=== PATIENT | female | born 1945 | race Hispanic/Latino ===

== ENCOUNTER 2021-10-12 16:09 | Inpatient (IN) | payer MEDICARE ==
[~2021-10-12] VITALS: Ht 162.6 cm; Wt 60.2 kg
[2021-10-12] VITALS (23 sets, daily range): BP systolic 90–179; BP diastolic 39–78
[2021-10-12 16:44] LABS: HEMATOCRIT 31.3 % (36-48); MEAN CORPUSCULAR HEMOGLOBIN 26.6 pg (27.0-33.0); MEAN CORPUSCULAR HGB CONC 31.3 g/dL (32.0-36.0); MEAN CORPUSCULAR VOLUME 84.8 fL (79-99); RED BLOOD CELL COUNT(AUTO) 3.69 MIL/uL (4.00-5.50); RED CELL DISTRIBUTION WIDTH 14.5 % (11.0-15.5); WHITE BLOOD COUNT (AUTO) 9.4 K/uL (4.8-10.8)
[2021-10-12] MEDS ORDERED: PROPOFOL 10 MG/ML 20ML VIAL IV ONE (16:50)
[2021-10-12] MEDS ORDERED: LIDOCAINE PF 100MG/5ML (2%) SYRINGE 5ML ONE (16:50)
[2021-10-12] MEDS ORDERED: ROCURONIUM 10MG/1ML SYR 10 MG/ML ML ONE (16:51)
[2021-10-12] MEDS ORDERED: FENTANYL CITRATE PF 50 MCG/1 ML 2ML VIAL ONE ×3 (16:51→18:37)
[2021-10-12 16:54] LABS: CREATININE 1.3 mg/dL (0.5-1.5); POTASSIUM 4.3 mmol/L (3.5-5.1)
[2021-10-12 16:55] LABS: INR 1.08 (0.85-1.15); PROTHROMBIN TIME 11.7 SEC (9.6-11.6)
[2021-10-12 16:59] LABS: ALBUMIN 3.2 g/dL (3.5-5.0); BILIRUBIN,TOTAL 0.5 mg/dL (0.2-1.0); TOTAL PROTEIN, SERUM 6.9 g/dL (6.0-8.3)
[2021-10-12 17:08] LABS: PARTIAL THROMBOPLASTIN TIME 92.9 SEC (26.3-35.5)
[2021-10-12] MEDS ORDERED: CEFAZOLIN SODIUM 1 GM VIAL ONE ×2 (17:24→17:43)
[2021-10-12] MEDS ORDERED: TRAMADOL HCL 50 MG TABLET PO PRN (18:00)
[2021-10-12] MEDS ORDERED: ACETAMINOPHEN 325 MG TAB PO PRN ×3 (18:00→23:00)
[2021-10-12] MEDS ORDERED: NEOSTIGMINE 5MG/5ML SYR IV ONE (18:38)
[2021-10-12] MEDS ORDERED: GLYCOPYRROLATE 1 MG/5 ML SYRINGE ONE (18:38)
[2021-10-12] MEDS ORDERED: ONDANSETRON 4MG INJ ONE (19:09)
[2021-10-12] MEDS ORDERED: HYDRALAZINE 20MG/ML VIAL ONE (19:17)
[2021-10-12] MEDS ORDERED: BENZONATATE 100 MG CAPSULE PO STA (20:21)
[2021-10-12] MEDS ORDERED: LACTULOSE 20 GM/30 ML UDCUP PO PRN (23:00)
[2021-10-12] MEDS ORDERED: KCL 20 MEQ ERTAB PO PRN (23:00)
[2021-10-12] MEDS ORDERED: POTASSIUM CHLORIDE 20MEQ/100ML 100 ML IV PRN (23:00)
[2021-10-12] MEDS ORDERED: LIDOCAINE HCL-MPF 1% 2ML VIAL IV PRN (23:00)
[2021-10-12] MEDS ORDERED: POTASSIUM CHLORIDE 10% ELIXIR 20 MEQ/15 ML UDCUP PO PRN (23:00)
[2021-10-13] VITALS (28 sets, daily range): BP systolic 89–178; BP diastolic 34–91
[2021-10-13 02:15] LABS: HEMATOCRIT 24.6 % (36-48); MEAN CORPUSCULAR HEMOGLOBIN 27.3 pg (27.0-33.0); MEAN CORPUSCULAR HGB CONC 30.5 g/dL (32.0-36.0); MEAN CORPUSCULAR VOLUME 89.5 fL (79-99); PLATELET COUNT (AUTO) 273 K/uL (130-400); RED BLOOD CELL COUNT(AUTO) 2.75 MIL/uL (4.00-5.50); RED CELL DISTRIBUTION WIDTH 14.8 % (11.0-15.5); WHITE BLOOD COUNT (AUTO) 15.5 K/uL (4.8-10.8)
[2021-10-13 02:24] LABS: INR 1.09 (0.85-1.15); PROTHROMBIN TIME 11.8 SEC (9.6-11.6)
[2021-10-13] MEDS ORDERED: BENZONATATE 100 MG CAPSULE PO PRN ×2 (03:00→05:30)
[2021-10-13] MEDS: CEFAZOLIN SODIUM 1 GM VIAL IVP SCH ×3 (03:13→16:20)
[2021-10-13] MEDS: ONDANSETRON 4MG INJ IV PRN ×2 (03:23→08:49)
[2021-10-13] MEDS: INSULIN HUMULIN R 100 UNIT/ML 3ML SQ SCH ×4 (07:30→20:20)
[2021-10-13 07:44] LABS: ALBUMIN 2.7 g/dL (3.5-5.0); BILIRUBIN,TOTAL 0.5 mg/dL (0.2-1.0); CREATININE 1.3 mg/dL (0.5-1.5); MAGNESIUM 2.2 mg/dL (1.80-2.40); PHOSPHORUS 5.2 mg/dL (2.5-4.9); POTASSIUM 4.7 mmol/L (3.5-5.1); TOTAL PROTEIN, SERUM 5.6 g/dL (6.0-8.3)
[2021-10-13 07:55] LABS: BASOPHILS % (AUTO) 0.2 % (0.0-5.0); HEMATOCRIT 26.1 % (36-48); LYMPHOCYTES % (AUTO) 5.4 % (21.0-51.0); MEAN CORPUSCULAR HEMOGLOBIN 27.9 pg (27.0-33.0); MEAN CORPUSCULAR HGB CONC 32.2 g/dL (32.0-36.0); MEAN CORPUSCULAR VOLUME 86.7 fL (79-99); MONOCYTES % (AUTO) 4.9 % (3.0-13.0); NEUTROPHILS % (AUTO) 88.9 % (40.0-77.0); PLATELET COUNT (AUTO) 212 K/uL (130-400); RED BLOOD CELL COUNT(AUTO) 3.01 MIL/uL (4.00-5.50); RED CELL DISTRIBUTION WIDTH 14.8 % (11.0-15.5); WHITE BLOOD COUNT (AUTO) 12.3 K/uL (4.8-10.8)
[2021-10-13] MEDS: TRAMADOL HCL 50 MG TABLET PO PRN (08:33)
[2021-10-13] MEDS ORDERED: MAG/ALUM/SIMETH 30 ML UDCUP ONE (08:38)
[2021-10-13] MEDS ORDERED: FAMOTIDINE 20MG TAB PO SCH (09:00)
[2021-10-13] MEDS ORDERED: MAG/ALUM/SIMETH 30 ML UDCUP PO PRN (09:00)
[2021-10-13] MEDS ORDERED: GLIP10TA9 PO (10:16)
[2021-10-13] MEDS ORDERED: CLOP75TA32 PO (10:16)
[2021-10-13] MEDS ORDERED: FURO20TA4 PO (10:16)
[2021-10-13] MEDS ORDERED: PREG50CA63 PO (10:16)
[2021-10-13] MEDS ORDERED: FLUO20CA36 PO (10:16)
[2021-10-13] MEDS ORDERED: EMPA1TAB19 PO (10:16)
[2021-10-13] MEDS ORDERED: METO25TA6 PO (10:16)
[2021-10-13] MEDS ORDERED: ATOR20TA65 PO (10:16)
[2021-10-13] MEDS ORDERED: PANT20TA18 PO (10:16)
[2021-10-13] MEDS ORDERED: OLME-11 PO (10:16)
[2021-10-13] MEDS: PREGABALIN 25 MG CAP PO SCH ×2 (20:16→20:27)
[2021-10-13] MEDS: ATORVASTATIN 20 MG TABLET PO SCH (20:17)
[2021-10-13] MEDS: METOPROLOL TARTRATE 25 MG TAB PO SCH (20:17)
[2021-10-13] MEDS: HEPARIN 5,000 UNIT VIAL SQ SCH (20:19)
[2021-10-14] VITALS (18 sets, daily range): BP systolic 98–143; BP diastolic 37–79
[2021-10-14 03:44] LABS: BASOPHILS % (AUTO) 0.3 % (0.0-5.0); EOSINOPHILS % (AUTO) 0.5 % (0.0-8.0); HEMATOCRIT 22.1 % (36-48); LYMPHOCYTES % (AUTO) 16.1 % (21.0-51.0); MEAN CORPUSCULAR HEMOGLOBIN 26.6 pg (27.0-33.0); MEAN CORPUSCULAR HGB CONC 31.2 g/dL (32.0-36.0); MEAN CORPUSCULAR VOLUME 85.3 fL (79-99); NEUTROPHILS % (AUTO) 70.5 % (40.0-77.0); PLATELET COUNT (AUTO) 218 K/uL (130-400); RED BLOOD CELL COUNT(AUTO) 2.59 MIL/uL (4.00-5.50); RED CELL DISTRIBUTION WIDTH 15.2 % (11.0-15.5); WHITE BLOOD COUNT (AUTO) 11.6 K/uL (4.8-10.8)
[2021-10-14 03:59] LABS: ALBUMIN 2.6 g/dL (3.5-5.0); BILIRUBIN,TOTAL 0.2 mg/dL (0.2-1.0); CREATININE 1.3 mg/dL (0.5-1.5); MAGNESIUM 2.2 mg/dL (1.80-2.40); POTASSIUM 3.7 mmol/L (3.5-5.1); TOTAL PROTEIN, SERUM 5.5 g/dL (6.0-8.3)
[2021-10-14] MEDS: INSULIN HUMULIN R 100 UNIT/ML 3ML SQ SCH ×4 (06:32→20:17)
[2021-10-14] MEDS: HYDROCHLOROTHIAZIDE PO SCH (09:00)
[2021-10-14] MEDS: METOPROLOL TARTRATE 25 MG TAB PO SCH ×2 (09:00→20:20)
[2021-10-14] MEDS: CLOPIDOGREL 75MG TAB PO SCH (09:00)
[2021-10-14] MEDS: HEPARIN 5,000 UNIT VIAL SQ SCH ×2 (09:00→20:16)
[2021-10-14] MEDS: OLMESARTAN PO SCH (09:00)
[2021-10-14] MEDS: FLUOXETINE HCL 20 MG CAPSULE PO SCH (09:05)
[2021-10-14] MEDS: FUROSEMIDE 20 MG TABLET PO SCH (09:05)
[2021-10-14] MEDS: PANTOPRAZOLE 40 MG TAB DR PO SCH (09:05)
[2021-10-14] MEDS: PREGABALIN 25 MG CAP PO SCH ×3 (09:05→20:11)
[2021-10-14 11:11] LABS: HEMATOCRIT 26.4 % (36-48); MEAN CORPUSCULAR HEMOGLOBIN 27.8 pg (27.0-33.0); MEAN CORPUSCULAR HGB CONC 32.6 g/dL (32.0-36.0); MEAN CORPUSCULAR VOLUME 85.4 fL (79-99); RED BLOOD CELL COUNT(AUTO) 3.09 MIL/uL (4.00-5.50); RED CELL DISTRIBUTION WIDTH 15.1 % (11.0-15.5); WHITE BLOOD COUNT (AUTO) 9.8 K/uL (4.8-10.8)
[2021-10-14] MEDS: TRAMADOL HCL 50 MG TABLET PO PRN ×2 (13:07→14:18)
[2021-10-14] MEDS: ATORVASTATIN 20 MG TABLET PO SCH (20:11)
[2021-10-15 00:15] VITALS: BP 118/46
[2021-10-15 03:47] VITALS: BP 121/71
[2021-10-15 03:56] LABS: MEAN CORPUSCULAR HEMOGLOBIN 27.5 pg (27.0-33.0); MEAN CORPUSCULAR HGB CONC 32.7 g/dL (32.0-36.0); MEAN CORPUSCULAR VOLUME 84.1 fL (79-99); NUCLEATED RED BLOOD CELLS 0.2 % (0.0-0.19); RED BLOOD CELL COUNT(AUTO) 3.09 MIL/uL (4.00-5.50); RED CELL DISTRIBUTION WIDTH 15.3 % (11.0-15.5); WHITE BLOOD COUNT (AUTO) 8.9 K/uL (4.8-10.8)
[2021-10-15 04:00] LABS: CREATININE 1.2 mg/dL (0.5-1.5); POTASSIUM 3.7 mmol/L (3.5-5.1)
[2021-10-15] MEDS: INSULIN HUMULIN R 100 UNIT/ML 3ML SQ SCH ×4 (06:40→21:24)
[2021-10-15 08:00] VITALS: BP 147/59
[2021-10-15] MEDS: FLUOXETINE HCL 20 MG CAPSULE PO SCH (08:15)
[2021-10-15] MEDS: PANTOPRAZOLE 40 MG TAB DR PO SCH (08:15)
[2021-10-15] MEDS: FUROSEMIDE 20 MG TABLET PO SCH (08:16)
[2021-10-15] MEDS: METOPROLOL TARTRATE 25 MG TAB PO SCH ×2 (08:16→20:38)
[2021-10-15] MEDS: PREGABALIN 25 MG CAP PO SCH ×3 (08:21→20:38)
[2021-10-15] MEDS: OLMESARTAN PO SCH (08:22)
[2021-10-15] MEDS: HYDROCHLOROTHIAZIDE PO SCH (08:22)
[2021-10-15] MEDS: HEPARIN 5,000 UNIT VIAL SQ SCH ×2 (09:00→20:44)
[2021-10-15] MEDS: CLOPIDOGREL 75MG TAB PO SCH (09:00)
[2021-10-15 12:00] VITALS: BP 162/64
[2021-10-15] MEDS ORDERED: LACTULOSE 20 GM/30 ML UDCUP PO SCH (12:00)
[2021-10-15] MEDS: BISACODYL 5 MG TABLET.DR PO SCH ×2 (12:16→21:00)
[2021-10-15 16:00] VITALS: BP 179/85
[2021-10-15] MEDS ORDERED: HYDRALAZINE 20MG/ML VIAL ONE (16:53)
[2021-10-15] MEDS ORDERED: HYDRALAZINE 20MG/ML VIAL IV PRN (17:00)
[2021-10-15] MEDS: ATORVASTATIN 20 MG TABLET PO SCH (20:38)
[2021-10-15 21:07] VITALS: BP 125/67
[2021-10-16 00:46] VITALS: BP 111/78
[2021-10-16 03:53] LABS: HEMATOCRIT 29.5 % (36-48); MEAN CORPUSCULAR HEMOGLOBIN 27.4 pg (27.0-33.0); MEAN CORPUSCULAR HGB CONC 31.5 g/dL (32.0-36.0); MEAN CORPUSCULAR VOLUME 86.8 fL (79-99); RED BLOOD CELL COUNT(AUTO) 3.4 MIL/uL (4.00-5.50); RED CELL DISTRIBUTION WIDTH 14.9 % (11.0-15.5); WHITE BLOOD COUNT (AUTO) 9.4 K/uL (4.8-10.8)
[2021-10-16 04:12] LABS: ALBUMIN 2.5 g/dL (3.5-5.0); BILIRUBIN,TOTAL 0.4 mg/dL (0.2-1.0); CREATININE 1.3 mg/dL (0.5-1.5); POTASSIUM 3.5 mmol/L (3.5-5.1); TOTAL PROTEIN, SERUM 5.4 g/dL (6.0-8.3)
[2021-10-16 04:48] VITALS: BP 117/55
[2021-10-16] MEDS: INSULIN HUMULIN R 100 UNIT/ML 3ML SQ SCH (06:28)
[2021-10-16 07:00] VITALS: BP 116/57
[2021-10-16] MEDS: PANTOPRAZOLE 40 MG TAB DR PO SCH (08:03)
[2021-10-16] MEDS: FUROSEMIDE 20 MG TABLET PO SCH (08:03)
[2021-10-16] MEDS: CLOPIDOGREL 75MG TAB PO SCH (08:03)
[2021-10-16] MEDS: HEPARIN 5,000 UNIT VIAL SQ SCH (08:04)
[2021-10-16] MEDS: HYDROCHLOROTHIAZIDE PO SCH (08:08)
[2021-10-16] MEDS: BISACODYL 5 MG TABLET.DR PO SCH (08:08)
[2021-10-16] MEDS: PREGABALIN 25 MG CAP PO SCH (08:08)
[2021-10-16] MEDS: FLUOXETINE HCL 20 MG CAPSULE PO SCH (08:08)
[2021-10-16] MEDS: OLMESARTAN PO SCH (08:08)
[2021-10-16] MEDS: METOPROLOL TARTRATE 25 MG TAB PO SCH (08:09)
== END 2021-10-16 10:30 | disposition home or self-care (01) | DRG 253 ==
LOC: EDH 16:09 → PAH.CVR 17:46 → UNDOADMIN 17:46 → EDHIP 17:46 → 2DH 10-13 14:15
PROVIDERS: ADMIT Internal Medicine Pulmonary Disease; ATTEND Internal Medicine Pulmonary Disease
PROC: 04CK0ZZ Extirpation of Matter from Right Femoral Artery, Open Approach (ICD-10-PCS; principal; 2021-10-12 17:10)
PROC: 30233K1 Transfusion of Nonautologous Frozen Plasma into Peripheral Vein, Percutaneous Approach (ICD-10-PCS; 2021-10-13)
PROC: 30233N1 Transfusion of Nonautologous Red Blood Cells into Peripheral Vein, Percutaneous Approach (ICD-10-PCS; 2021-10-13)
PROC: 30233R1 Transfusion of Nonautologous Platelets into Peripheral Vein, Percutaneous Approach (ICD-10-PCS; 2021-10-13)
DX: T82.898A Other specified complication of vascular prosthetic devices, implants and grafts, initial encounter (principal); N17.9 Acute kidney failure, unspecified; E11.51 Type 2 diabetes mellitus with diabetic peripheral angiopathy without gangrene; E11.22 Type 2 diabetes mellitus with diabetic chronic kidney disease; D63.8 Anemia in other chronic diseases classified elsewhere; I12.9 Hypertensive chronic kidney disease with stage 1 through stage 4 chronic kidney disease, or unspecified chronic kidney disease; S30.1XXA Contusion of abdominal wall, initial encounter; D64.9 Anemia, unspecified; N18.9 Chronic kidney disease, unspecified; E78.5 Hyperlipidemia, unspecified; I25.10 Atherosclerotic heart disease of native coronary artery without angina pectoris; E78.00 Pure hypercholesterolemia, unspecified; Z20.822 Contact with and (suspected) exposure to COVID-19; Z96.651 Presence of right artificial knee joint; Y83.2 Surgical operation with anastomosis, bypass or graft as the cause of abnormal reaction of the patient, or of later complication, without mention of misadventure at the time of the procedure; Y92.89 Other specified places as the place of occurrence of the external cause; Z95.1 Presence of aortocoronary bypass graft; Z82.49 Family history of ischemic heart disease and other diseases of the circulatory system; Z79.4 Long term (current) use of insulin; Z90.49 Acquired absence of other specified parts of digestive tract; Z79.82 Long term (current) use of aspirin; Z79.02 Long term (current) use of antithrombotics/antiplatelets; Z79.899 Other long term (current) drug therapy; Z98.62 Peripheral vascular angioplasty status
CPT/HCPCS: 36415; 36430; 80048; 80053; 82948; 83735; 84100; 85018; 85025; 85027; 85384; 85610; 85730; 86850; 86900; 86901; 86922; 86923; 86927; 87635; 88300; 88304; 88311; 93005; 97039; C1763; C9803; G0378; J0360; J0690; J1644; J1815; J2001; J2405; J2704; J2710; J3010; J3490; J7030; P9016; P9017; P9034